=== PATIENT | male | born 2005 | race Hispanic/Latino ===

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

== ENCOUNTER 2025-01-26 17:46 | Emergency (ER) | payer OTHER, SELFPAY | END 2025-01-26 18:46 | disposition home or self-care (01) | LOC: MADERS 17:46 | DX: S61.215A Laceration without foreign body of left ring finger without damage to nail, initial encounter (principal); W26.8XXA Contact with other sharp object(s), not elsewhere classified, initial encounter; Y99.0 Civilian activity done for income or pay | CPT/HCPCS: 12002; 99283 ==

== ENCOUNTER 2025-02-07 18:25 | Emergency (ER) | payer SELFPAY | END 2025-02-07 20:08 | disposition home or self-care (01) | LOC: MADERS 18:25 | DX: S61.215D Laceration without foreign body of left ring finger without damage to nail, subsequent encounter (principal); X58.XXXD Exposure to other specified factors, subsequent encounter ==